=== PATIENT | female | born 1970 ===

== ENCOUNTER 2018-09-07 10:04 | Inpatient (IN) | payer OTHER ==
[2018-09-07 10:14] VITALS: BMI 40.7
--- NOTE | 2018-09-07 10:28 | ED PDOC ---
Arrival/HPI - General Chief Complaint: GI Problem Time Seen by Provider: 09/07/18 10:19 Historian: Patient - History of Present Illness Narrative History of Present Illness (Text): 09/07/18 10:23 48 year old female, pmh including GERD/uterine fibroid, nkda, complaining of epigastric pain/nausea/vomiting x 3 days with cough. Pt. stated that she has been having epigastric pain with coughing, progressed to nausea/vomiting, no ch est pain or shortness of breath, admits fatigue, no night sweat, no dizziness, no palpitation, no numbness or tingling, no other medical or psychological complaints. Past Medical History - Provider Review Nursing Documentation Reviewed: Yes - Infectious Disease Hx of Infectious Diseases: None - Reproductive Currently : No - Psychiatric Hx Substance Use: No - Anesthesia Hx Anesthesia: No Family/Social History - Physician Review Nursing Documentation Reviewed: Yes Family/Social History: Unknown Family HX Smoking Status: Never Smoked Hx Alcohol Use: No Hx Substance Use: No Allergies/Home Meds Allergies/Adverse Reactions: Allergies No Known Allergies Allergy (Verified 09/07/18 10:14) Review of Systems - Review of Systems Constitutional: Fatigue. absent: Fevers Eyes: absent: Vision Changes ENT: absent: Hearing Changes Respiratory: Cough. absent: SOB, Sputum, Wheezing Cardiovascular: absent: Chest Pain Gastrointestinal: Abdominal Pain, Nausea, Vomiting. absent: Constipation, Diarrhea Musculoskeletal: absent: Arthralgias, Back Pain, Myalgias Skin: absent: Rash, Pruritis, Skin Lesions, Ulcer Neurological: absent: Headache Psychiatric: absent: Anxiety, Depression, Suicidal Ideation Physical Exam Vital Signs Reviewed: Yes Vital Signs Temp Pulse Resp BP Pulse Ox 09/07/18 10:05 98.2 F 97 H 18 149/90 100 Temperature: Afebrile Blood Pressure: Normal Pulse: Regular Respiratory Rate: Normal Appearance: Positive for: Well-Appearing, Non-Toxic Pain Distress: None Mental Status: Positive for: Alert and Oriented X 3 - Systems Exam Head: Present: Atraumatic, Normocephalic Pupils: Present: PERRL Extroacular Muscles: Present: EOMI Conjunctiva: Present: Normal Ears: Present: NORMAL TM, Normal Canal. No: Erythema Mouth: Present: Moist Mucous Membranes Pharnyx: No: ERYTHEMA, EXUDATE, TONSILS ENLARGED Nose (External): Present: Atraumatic. No: Abrasion, Contusion, Laceration Nose (Internal): Present: Normal Inspection, No Active Bleeding. No: Rhinorrhea, Septal Hematoma, Epistaxis Neck: Present: Normal Range of Motion, Trachea Midline. No: Meningeal Signs, MIDLINE TENDERNESS, Paraspinal Tenderness, Lymphadenopathy Respiratory/Chest: Present: Clear to Auscultation, Good Air Exchange. No: Respiratory Distress, Accessory Muscle Use, Wheezes, Decreased Breath Sounds, Rales, Retracting, Rhonchi, Tachypneic, Tender to Palpation Cardiovascular: Present: Regular Rate and Rhythm, Normal S1, S2. No: Murmurs Abdomen: Present: Tenderness (epgiastric, negative carmona signs). No: Distention, Peritoneal Signs, Rebound, Guarding Rectal: Present: Hemorrhoids (external), Normal Rectal Tone, Other (female green chain offbearer: RAIL SETTERERNST Dimas. ). No: Occult Blood, Rectal Tenderness, Gross Blood, Melena, Fissures, Nodule/Mass/Lesions Back: Present: Normal Inspection. No: CVA Tenderness, Midline Tenderness, P araspinal Tenderness Upper Extremity: Present: Normal Inspection. No: Cyanosis, Edema Lower Extremity: Present: Normal Inspection. No: Edema Neurological: Present: GCS=15, CN II-XII Intact, Speech Normal, Motor Func Grossly Intact, Gait Normal, Memory Normal Skin: Present: Warm, Dry, Normal Color. No: Rashes Psychiatric: Present: Alert, Oriented x 3, Normal Insight, Normal Concentration Medical Decision Making ED Course and Treatment: 09/07/18 10:32 -labs -chest/abd xray -IVF/pepcid/reglan -Observe and reassess 09/07/18 12:45 -Urine hcg negative -Chest xray ER wet read: no active disease -Abdominal xray ER wet read: no obstruction and no free air. -Labs show no acute findings except hgb 6.1 with MCV 55.1 (no comparison, likely iron deficiency anemia, on her period now), iron/tibc/transferrin ordered -Mg within normal limit -Lipase is negative -Urinalysis show +UTI, IV rocephin -Guaiac is positive with brown stool color, IV protonix and 1 units of PRBC ordered -Pt. feels well at this time with pepcid relief her discomfort. -Pt. will need admission for blood transfusion and GI consult. 09/07/18 13:00 -I spoke to the hospitalist, Dr. Knight, discussed about the labs/radiology results, agreed on the admission. - RAD Interpretation Radiology Orders: -Chest xray Date of service: 09/07/2018 HISTORY: Cough COMPARISON: No prior TECHNIQUE: Chest PA and lateral FINDINGS: LUNGS: No active pulmonary disease. PLEURA: No significant pleural effusion identified. No pneumothorax apparent. CARDIOVASCULAR: No aortic atherosclerotic calcification present. Normal cardiac size. No pulmonary vascular congestion. OSSEOUS STRUCTURES: No significant abnormalities. VISUALIZED UPPER ABDOMEN: Normal. OTHER FINDINGS: None. IMPRESSION: No active disease. --------- -Abdominal xray Date of service: 09/07/2018 HISTORY: vomiting COMPARISON: None available. FINDINGS: BOWEL: Normal. No obstruction. No free air. Metallic clips are present in the right right parasagittal mid to lower abdomen; clinical correlation with surgical history. BONES: Minor multilevel degenerative spondylosis of the lower thoracic and lumbar spine. OTHER FINDINGS: None. IMPRESSION: No evidence of acute mechanical bowel obstruction.. No gross free intraperitoneal air Psychological Stress Evaluator: Radiologist - PA / MANAGER RADIATION / Resident Statement /DO has reviewed & agrees with the documentation as recorded. Disposition/Present on Arrival - Present on Arrival Any Indicators Present on Arrival: No History of DVT/PE: No History of Uncontrolled Diabetes: No Urinary Catheter: No History of Decub. Ulcer: No History Surgical Site Infection Following: None - Disposition Have Diagnosis and Disposition been Completed?: Yes Diagnosis: Anemia, UTI (urinary tract infection), GI bleed Disposition: HOSPITALIZED Disposition Time: 13:02 Patient Plan: Admission, Observation, Telemetry Patient Problems: Current Active Problems Problem Status Onset Anemia Acute GI bleed Acute UTI (urinary tract infection) Acute Condition: GUARDED
[2018-09-07] MEDS ORDERED: Sodium Chloride 0.9% 1,000 ML IV STA (10:29)
[2018-09-07 11:22] LABS: BASO # 0.02 K/mm3 (0.0-2.0); BASO % 0.3 % (0.0-3.0); EOS # 0.1 (0.0-0.7); EOS % 1.2 % (1.5-5.0); LYMPH # 1.5 (1.2-3.4); LYMPH % 20.9 % (22.0-35.0); MEAN CELL VOLUME 55.1 fl (80.0-105.0); MEAN CORPUSCULAR HEMOGLOBIN 15.1 pg (25.0-35.0); MEAN CORPUSCULAR HGB CONC 27.4 g/dl (31.0-37.0); MEAN PLATELET VOLUME 8.8 fl (7.0-11.0); MONO # 0.4 (0.1-0.6); MONO % 5.5 % (1.0-6.0); RBC 4.05 10^6/uL (3.5-6.1); RED CELL DISTRIBUTION WIDTH 19.4 % (11.5-14.5); WHITE BLOOD COUNT 6.9 10^3/uL (4.5-11.0)
[2018-09-07 11:23] LABS: URINE BILIRUBIN NEGATIVE (NEGATIVE); URINE BLOOD LARGE (NEGATIVE); URINE GLUCOSE (UA) NEGATIVE (NEGATIVE); URINE LEUKOCYTE ESTERASE TRACE Leu/uL (NEGATIVE); URINE PROTEIN TRACE mg/dL (<30 mg/dL); URINE UROBILINOGEN 0.2 E.U./dL (<1 E.U./dL)
[2018-09-07 11:29] LABS: URINE APPEARANCE SLIGHT-CLOUDY (CLEAR); URINE COLOR YELLOW (YELLOW)
[2018-09-07 11:35] LABS: HEMOGLOBIN 6.1 g/dL (12.0-16.0)
[2018-09-07 11:39] LABS: URINE BACTERIA MANY /hpf; URINE RBC TNTC /hpf (0-2)
[2018-09-07 11:40] LABS: TROPONIN I < 0.01 ng/mL
[2018-09-07 11:43] LABS: ALB/GLOB RATIO 1.3 (1.1-1.8); ALBUMIN 4.3 g/dL (3.0-4.8); ALT/SGPT 24 U/L (7-56); AST/SGOT 27 U/L (14-36); BLOOD UREA NITROGEN 10 mg/dL (7-21); GFR NON-AFRICAN AMERICAN > 60; LIPASE 98 U/L (23-300)
[2018-09-07] MEDS ORDERED: cefTRIAXone 1 gm 1 GM/100 ML BAG IVPB STA (12:15)
--- NOTE | 2018-09-07 12:59 | RAD ---
Date of service: 09/07/2018 HISTORY: Cough COMPARISON: No prior TECHNIQUE: Chest PA and lateral FINDINGS: LUNGS: No active pulmonary disease. PLEURA: No significant pleural effusion identified. No pneumothorax apparent. CARDIOVASCULAR: No aortic atherosclerotic calcification present. Normal cardiac size. No pulmonary vascular congestion. OSSEOUS STRUCTURES: No significant abnormalities. VISUALIZED UPPER ABDOMEN: Normal. OTHER FINDINGS: None. IMPRESSION: No active disease.
--- NOTE | 2018-09-07 13:41 | RAD ---
Date of service: 09/07/2018 HISTORY: vomiting COMPARISON: None available. FINDINGS: BOWEL: Normal. No obstruction. No free air. Metallic clips are present in the right right parasagittal mid to lower abdomen; clinical correlation with surgical history. BONES: Minor multilevel degenerative spondylosis of the lower thoracic and lumbar spine. OTHER FINDINGS: None. IMPRESSION: No evidence of acute mechanical bowel obstruction.. No gross free intraperitoneal air
[2018-09-07 13:58] LABS: IRON < 10 ug/dL (45-180)
[2018-09-07 14:18] LABS: TOTAL IRON BINDING CAPACITY 440 ug/dL (265-497)
--- NOTE | 2018-09-07 15:01 | CP.PCM.HP ---
<Tyler Braswell - Last Filed: 09/07/18 16:32> History of Present Illness - History of Present Illness History of Present Illness: Tyler Braswell PGY1, History and Physical for Dr Sherley Knight Pt is a 48yo female with a PMH of GERD and uterine fibroids who presents to the ED complaining of nausea and non bloody/ non bilious vomiting since this morning. Pt states she ate some [place] food yesterday and she feels it made her sick. She denies any sick contacts. Pt has not been able to eat anything today because of her nausea and vomiting. She states she has vomited over 10 times. Pt denies diarrhea, or seeing blood in the stool. Pt denies fever. Pt states she is currently on her menstrual cycle. Pt states she has very painful, cycles and she bleeds excessively for 5 days. She sometimes has to use 10 pad/tampons per day. Pt states she has been feeling fatigue for months. Pt has a history of uterine fibroids. A 12 point ROS was obtained and PMH: GERD, uterine fibroids PSH: appendectomy FH: mother alive 70, no health problems, Father 47, alcoholism SH: Tobacco quit 20 years ago, 1ppd for 7 years. Alcohol quit 20 years ago. Denies drugs. Lives in [place]. Home Meds: denies Allergies: denies PMD: denies Present on Admission - Present on Admission Any Indicators Present on Admission: No Past Patient History - Infectious Disease Hx of Infectious Diseases: None - Past Social History Smoking Status: Never Smoked - PSYCHIATRIC Hx Substance Use: No - ANESTHESIA Hx Anesthesia: No Meds Allergies/Adverse Reactions: Allergies Allergy/AdvReac Type Severity Reaction Status Date / Time No Known Allergies Allergy Verified 09/07/18 20:49 Physical Exam - Constitutional Appears: No Acute Distress - Head Exam Head Exam: ATRAUMATIC, NORMOCEPHALIC - Eye Exam Eye Exam: EOMI Additional comments: pale conjunctiva - ENT Exam ENT Exam: Mucous Membranes Moist - Neck Exam Neck exam: Positive for: Full Rom - Respiratory Exam Respiratory Exam: Clear to Auscultation Bilateral, NORMAL BREATHING PATTERN. absent: Accessory Muscle Use, Respiratory Distress - Cardiovascular Exam Cardiovascular Exam: RRR, +S1, +S2. absent: Diastolic murmur, Systolic Murmur - GI/Abdominal Exam GI & Abdominal Exam: Normal Bowel Sounds, Soft, Tenderness - Rectal Exam Additional comments: per ER, FOBT POSITIVE - Extremities Exam Extremities exam: Positive for: full ROM, normal inspection. Negative for: calf tenderness, pedal edema, pedal pulses present - Neurological Exam Neurological exam: Alert, Oriented x3 - Psychiatric Exam Psychiatric exam: Normal Affect, Normal Mood - Skin Skin Exam: Dry, Normal Color, Warm Results - Vital Signs Recent Vital Signs: Last Vital Signs Temp 98.2 F 09/07/18 10:05 Pulse 97 H 09/07/18 10:05 Resp 18 09/07/18 10:05 BP 149/90 09/07/18 10:05 Pulse Ox 100 09/07/18 10:05 - Labs Result Diagrams: 09/07/18 11:05 09/07/18 11:05 Labs: Laboratory Results - last 24 hr 09/07/18 09/07/18 09/07/18 10:45 11:05 11:05 WBC 6.9 RBC 4.05 Hgb 6.1 L* Hct 22.3 L MCV 55.1 L MCH 15.1 L MCHC 27.4 L RDW 19.4 H Plt Count 501 H MPV 8.8 Neut % (Auto) 72.1 H Lymph % (Auto) 20.9 L Beckham % (Auto) 5.5 Eos % (Auto) 1.2 L Baso % (Auto) 0.3 Lymph # (Auto) 1.5 Beckham # (Auto) 0.4 Eos # (Auto) 0.1 Baso # (Auto) 0.02 Absolute Neuts (auto) 5.01 Sodium 140 Potassium 4.2 Chloride 106 Carbon Dioxide 26 Anion Gap 13 BUN 10 Creatinine 0.6 L Est GFR ( Amer) > 60 Est GFR (Non-Af Amer) > 60 Random Glucose 103 Calcium 9.0 Magnesium 2.2 Iron TIBC % Saturation Total Bilirubin 0.3 AST 27 ALT 24 Alkaline Phosphatase 109 Troponin I < 0.01 Total Protein 7.7 Albumin 4.3 Globulin 3.3 Albumin/Globulin Ratio 1.3 Lipase 98 Urine Color Yellow Urine Appearance Slight-cloudy Urine pH 6.0 Ur Specific Lutz 1.025 Urine Protein Trace H Urine Glucose (UA) Negative Urine Ketones Negative Urine Blood Large H Urine Nitrate Negative Urine Bilirubin Negative Urine Urobilinogen 0.2 Ur Leukocyte Esterase Trace H Urine RBC Tntc H Urine WBC 5 - 10 H Ur Epithelial Cells 4 - 5 Urine Bacteria Many Urine Other Fiber Blood Type Blood Type Confirm Antibody Screen Crossmatch BBK History Checked 09/07/18 09/07/18 09/07/18 11:30 13:17 14:08 WBC RBC Hgb Hct MCV MCH MCHC RDW Plt Count MPV Neut % (Auto) Lymph % (Auto) Beckham % (Auto) Eos % (Auto) Baso % (Auto) Lymph # (Auto) Beckham # (Auto) Eos # (Auto) Baso # (Auto) Absolute Neuts (auto) Sodium Potassium Chloride Carbon Dioxide Anion Gap BUN Creatinine Est GFR ( Amer) Est GFR (Non-Af Amer) Random Glucose Calcium Magnesium Iron < 10 L TIBC 440 % Saturation Total Bilirubin AST ALT Alkaline Phosphatase Troponin I Total Protein Albumin Globulin Albumin/Globulin Ratio Lipase Urine Color Urine Appearance Urine pH Ur Specific Lutz Urine Protein Urine Glucose (UA) Urine Ketones Urine Blood Urine Nitrate Urine Bilirubin Urine Urobilinogen Ur Leukocyte Esterase Urine RBC Urine WBC Ur Epithelial Cells Urine Bacteria Urine Other Blood Type B POSITIVE Blood Type Confirm B POSITIVE Antibody Screen Negative Crossmatch See Detail BBK History Checked No verified bt Assessment & Plan - Assessment and Plan (Free Text) Assessment: Pt is a 48yo female with a PMH of GERD and uterine fibroids who presents to the ED complaining of nausea and non bloody/ non bilious vomiting since this morning. Pt states she ate some [place] food yesterday and she feels it made her sick. Pt was found to have a Hgn of 6.1, likely from her uterine fibroids. Plan: Intractable Nausea and Vomiting - Viral Gastroenteritis - history of GERD - NS100, for 24 hours - Protonix - GI consulted Symptomatic Hypochromic Microcytic Anemia - FOBT POSITIVE - history of uterine fibroids - monitor CBC - type and screen, transfuse 1 unit - peripheral smear shows hypochromic microcytic anemia - electrophoresis - iron studies follow up Ppx, diet - CLD Pt seen, examined, assessment and plan discussed with Dr Sherley Braswell PGY1, Internal Medicine Resident - Date & Time Date: 09/07/18 Time: 15:05 <Sherley Knight R - Last Filed: 09/08/18 13:38> Results - Vital Signs Recent Vital Signs: Last Vital Signs Temp 98.6 F 09/08/18 13:20 Pulse 91 H 09/08/18 13:20 Resp 20 09/08/18 13:20 BP 135/76 09/08/18 13:20 Pulse Ox 100 09/08/18 05:57 - Labs Result Diagrams: 09/08/18 05:00 09/08/18 05:00 Labs: Laboratory Results - last 24 hr 09/07/18 09/07/18 09/07/18 11:05 11:30 13:17 WBC RBC Hgb Hct MCV MCH MCHC RDW Plt Count MPV Neut % (Auto) Lymph % (Auto) Beckham % (Auto) Eos % (Auto) Baso % (Auto) Lymph # (Auto) Beckham # (Auto) Eos # (Auto) Baso # (Auto) Absolute Neuts (auto) Hemoglobinopathy Red Blood Count 3.96 Hemoglobinopathy Hct 20.9 L Hemoglobinopathy Hgb 6.1 L Hemoglobinopathy MCV 52.8 L Hemoglobinopathy MCH 15.5 L Hemoglobinopathy RDW 20.9 H Sodium Potassium Chloride Carbon Dioxide Anion Gap BUN Creatinine Est GFR ( Amer) Est GFR (Non-Af Amer) Random Glucose Calcium Iron < 10 L TIBC 440 % Saturation Transferrin Total Bilirubin AST ALT Alkaline Phosphatase Total Protein Albumin Globulin Albumin/Globulin Ratio Blood Type B POSITIVE Blood Type Confirm Antibody Screen Negative Crossmatch See Detail BBK History Checked No verified bt 09/07/18 09/07/18 09/08/18 14:08 14:30 05:00 WBC 6.7 RBC 4.26 Hgb 6.9 L* Hct 24.6 L MCV 57.7 L MCH 16.2 L MCHC 28.0 L RDW 22.5 H Plt Count 483 H MPV 9.4 Neut % (Auto) 58.5 Lymph % (Auto) 31.7 Beckham % (Auto) 8.5 H Eos % (Auto) 1.2 L Baso % (Auto) 0.1 Lymph # (Auto) 2.1 Beckham # (Auto) 0.6 Eos # (Auto) 0.1 Baso # (Auto) 0.01 Absolute Neuts (auto) 3.92 Hemoglobinopathy Red Blood Count Hemoglobinopathy Hct Hemoglobinopathy Hgb Hemoglobinopathy MCV Hemoglobinopathy MCH Hemoglobinopathy RDW Sodium Potassium Chloride Carbon Dioxide Anion Gap BUN Creatinine Est GFR ( Amer) Est GFR (Non-Af Amer) Random Glucose Calcium Iron TIBC % Saturation Transferrin 339.29 Total Bilirubin AST ALT Alkaline Phosphatase Total Protein Albumin Globulin Albumin/Globulin Ratio Blood Type Blood Type Confirm B POSITIVE Antibody Screen Crossmatch BBK History Checked 09/08/18 05:00 WBC RBC Hgb Hct MCV MCH MCHC RDW Plt Count MPV Neut % (Auto) Lymph % (Auto) Beckham % (Auto) Eos % (Auto) Baso % (Auto) Lymph # (Auto) Beckham # (Auto) Eos # (Auto) Baso # (Auto) Absolute Neuts (auto) Hemoglobinopathy Red Blood Count Hemoglobinopathy Hct Hemoglobinopathy Hgb Hemoglobinopathy MCV Hemoglobinopathy MCH Hemoglobinopathy RDW Sodium 139 Potassium 4.0 Chloride 111 H Carbon Dioxide 23 Anion Gap 9 L BUN 8 Creatinine 0.6 L Est GFR ( Amer) > 60 Est GFR (Non-Af Amer) > 60 Random Glucose 95 Calcium 8.5 Iron TIBC % Saturation Transferrin Total Bilirubin 0.4 AST 33 ALT 17 Alkaline Phosphatase 98 Total Protein 7.0 Albumin 3.9 Globulin 3.1 Albumin/Globulin Ratio 1.3 Blood Type Blood Type Confirm Antibody Screen Crossmatch BBK History Checked Attending/Attestation - Attestation I have personally seen and examined this patient.: Yes I have fully participated in the care of the patient.: Yes I have reviewed all pertinent clinical information: Yes Notes (Text): Patient seen and examined by me with resident at 1:15PM on 09/07/18 in the emergency room. Case including HPI, physical exam, and assessment and plan discussed with resident. Agree with above with following additions/corrections. CC: Nausea, vomiting, and Abdominal Pain. Patient is a 48-year-old female past medical history significant for acid reflux, urine fibroids, and iron deficient anemia that presented to the emergency room with nausea, vomiting, and abdominal pain. Patient states that she had Nigerian food around 10 PM last night. She states that she was only one in her household that this fluid. She woke up this morning feeling nauseous. She states she had multiple episodes of nonbilious, nonbloody vomiting. She states it looked like "phlegm." She states she was also having some abdominal pain in the middle of the abdomen. No associated diarrhea. Patient has not noticed any blood in her stool. Patient states that she has had increased fatigue. She s tates that she was supposed to take iron at home however she has not been taking it as it did not make her feel well. She denies any fevers or chills. Abdominal pain resolved. No headaches or dizziness. No lightheadedness. No chest pain or shortness of breath. No dysuria or burning with urination. No neck pain or back pain. Patient states that she is on her menstrual period. She states that she tejada s heavy menses. Patient states that she was supposed follow-up for fibroids however, she did not do so. 12 point review of systems reviewed by me. Please see above HPI. All other systems negative. Medications at home: Reviewed in patient denies taking any Allergies: NKDA Physical exam: General: Awake and alert lying in bed in no acute distress HEENT: Normocephalic, atraumatic. Extraocular muscles intact, pupils equal and reactive, no scleral icterus. Oropharynx is pink and moist. No pharyngeal e rythema or exudate apreciated. Neck is supple. Hearing grossly intact. Ears and nose externally unremarkable. Cardiovascular: Regular rhythm. Normal S1 and S2. No murmurs, rubs, or gallops appreciated Pulmonary: Normal respiratory effort. No rhonchi, rales, or wheezing appreciated. Gastrointestinal: Soft, nondistended. Nontender. Positive bowel sounds all 4 quadrants. No guarding. Musculoskeletal: Moves all extremities. No calf tenderness. No edema. Central nervous system: AAOx3, CN 2-12 grossly intact. 5/5 muscle strength all extremities. Dermatologic: Skin warm and dry. Assessment and plan: Patient is a 48-year-old female past medical history significant for acid reflux, urine fibroids, and iron deficient anemia that presented to the emergency room with nausea, vomiting, and abdominal pain. 1. Nausea, vomiting, no abdominal pain. Improved. Likely secondary to viral gastroenteritis. Continue IV fluids. We'll place on clear liquids for now. Zofran as needed. Abdominal x-ray per radiologist showed no evidence of acute mechanical bowel obstruction, no gross free intraperitoneal air. 2. Severe anemia. Stool for occult blood positive. Patient also with history of heavy menses and uterine fibroids. GI consulted, follow-up recommendations. Patient advised that she will need follow-up with her mechanical developer prover as an outpatient. Transfuse packed red blood cells. Monitor CBC and transfuse as needed. Follow-up iron studies. Placed on IV Protonix. 3. Obesity. Diet and exercise discussed with patient. 4. GI/DVT prophylaxis. Protonix/scds 5. Patient is a full code. Case was discussed in detail with the patient regarding current diagnosis and treatment plan. All questions answered.
[2018-09-07] MEDS: Sodium Chloride 0.9% 1,000 ML IV SCH (15:32)
[2018-09-07] MEDS ORDERED: Pneumococcal 23-Valent Vaccine IM ONE (22:50)
[2018-09-07] MEDS ORDERED: Influenza Vaccine 60 mcg/0.5 mL SYR (4YR UP) IM ONE (22:50)
[2018-09-08 06:11] LABS: MCH 15.5 pg (27.0-33.0); MCV 52.8 fL (80.0-100.0)
[2018-09-08 07:09] LABS: BASO # 0.01 K/mm3 (0.0-2.0); BASO % 0.1 % (0.0-3.0); EOS # 0.1 (0.0-0.7); EOS % 1.2 % (1.5-5.0); LYMPH # 2.1 (1.2-3.4); LYMPH % 31.7 % (22.0-35.0); MEAN CELL VOLUME 57.7 fl (80.0-105.0); MEAN CORPUSCULAR HEMOGLOBIN 16.2 pg (25.0-35.0); MEAN PLATELET VOLUME 9.4 fl (7.0-11.0); MONO # 0.6 (0.1-0.6); MONO % 8.5 % (1.0-6.0); RBC 4.26 10^6/uL (3.5-6.1); RED CELL DISTRIBUTION WIDTH 22.5 % (11.5-14.5); WHITE BLOOD COUNT 6.7 10^3/uL (4.5-11.0)
[2018-09-08 07:45] LABS: HEMOGLOBIN 6.9 g/dL (12.0-16.0)
[2018-09-08 07:49] LABS: ALB/GLOB RATIO 1.3 (1.1-1.8); ALBUMIN 3.9 g/dL (3.0-4.8); ALT/SGPT 17 U/L (7-56); AST/SGOT 33 U/L (14-36); BLOOD UREA NITROGEN 8 mg/dL (7-21); CALCIUM 8.5 mg/dL (8.4-10.5); GFR NON-AFRICAN AMERICAN > 60
[2018-09-08] MEDS: Sodium Chloride 0.9% 1,000 ML IV SCH ×2 (10:01→10:07)
--- NOTE | 2018-09-08 11:14 | CARD ---
APPROVED REPORT Date of service: 09/07/2018 EKG Measurement Heart [id number] <Conclusion> Normal sinus rhythm Normal ECG
--- NOTE | 2018-09-08 11:42 | CP.PCM.PN ---
<Tyler Braswell - Last Filed: 09/08/18 11:53> Subjective - Date & Time of Evaluation Date of Evaluation: 09/08/18 Time of Evaluation: 06:00 - Subjective Subjective: Pt seen and examined this morning at bedside. Pt denies chest pain, SOB, or dizziness. Per nursing, pt transfused 1 unit pRBC, no adverse reactions or side effects noted. Objective - Vital Signs/Intake and Output Vital Signs (last 24 hours): Temp Pulse Resp BP Pulse Ox 98.1 F 64 18 133/77 100 09/08/18 05:57 09/08/18 05:57 09/08/18 05:57 09/08/18 05:57 09/08/18 05:57 Intake and Output: 09/08/18 09/08/18 06:59 18:59 Intake Total 1040 Balance 1040 - Medications Medications: Current Medications Sodium Chloride (Sodium Chloride 0.9%) 1,000 mls @ 100 mls/hr IV .Q10H CALEB Stop: 09/08/18 14:45 Last Admin: 09/08/18 10:07 Dose: 100 mls/hr Pantoprazole Sodium (Protonix Inj) 40 mg IVP Q12 CALEB Last Admin: 09/08/18 10:00 Dose: 40 mg - Labs Labs: 09/08/18 05:00 09/08/18 05:00 - Constitutional Appears: No Acute Distress - Head Exam Head Exam: ATRAUMATIC, NORMOCEPHALIC - Eye Exam Eye Exam: EOMI - ENT Exam ENT Exam: Mucous Membranes Moist - Neck Exam Neck Exam: Full ROM - Respiratory Exam Respiratory Exam: NORMAL BREATHING PATTERN. absent: Accessory Muscle Use, Clear to Ausculation Bilateral, Respiratory Distress - Cardiovascular Exam Cardiovascular Exam: +S1, +S2. absent: Diastolic murmur, Murmur - GI/Abdominal Exam GI & Abdominal Exam: Soft, Normal Bowel Sounds. absent: Tenderness - Extremities Exam Extremities Exam: Full ROM. absent: Calf Tenderness, Pedal Edema, Tenderness - Neurological Exam Neurological Exam: Alert, Awake, Oriented x3 - Psychiatric Exam Psychiatric exam: Normal Affect, Normal Mood - Skin Skin Exam: Dry, Intact, Warm Assessment and Plan - Assessment and Plan (Free Text) Assessment: Pt is a 48yo female with a PMH of GERD and uterine fibroids who presents to the ED complaining of nausea and non bloody/ non bilious vomiting since this morning. Pt states she ate some Latvian food yesterday and she feels it made her sick. Pt was found to have a Hgb of 6.1, likely from her uterine fibroids. Plan: Intractable Nausea and Vomiting - Likely Viral Gastroenteritis, history of GERD - Protonix - GI consulted Symptomatic Hypochromic Microcytic Anemia - FOBT POSITIVE - history of uterine fibroids - Hgb 6.9 after being transfused 1 unit - type and screen, transfused 1 unit 09/07/18 - transfuse 2 units 09/08/18 - peripheral smear shows hypochromic microcytic anemia - electrophoresis follow up - iron studies: iron <10, TIBC 440, unable to calculate %sat, Transferrin 339 Ppx, diet - CLD - SCD Pt seen, examined, assessment and plan discussed with Dr Sherley Braswell PGY1, Internal Medicine Resident <Sherley Knight R - Last Filed: 09/09/18 16:41> Objective - Vital Signs/Intake and Output Vital Signs (last 24 hours): Temp Pulse Resp BP Pulse Ox 98.5 F 105 H 20 170/89 H 99 09/09/18 15:25 09/09/18 15:25 09/09/18 15:25 09/09/18 15:25 09/09/18 15:25 Intake and Output: 09/09/18 09/09/18 06:59 18:59 Intake Total 2385 Balance 2385 - Medications Medications: Current Medications Pantoprazole Sodium (Protonix Inj) 40 mg IVP DAILY CALEB Last Admin: 09/09/18 09:29 Dose: 40 mg - Labs Labs: 09/09/18 07:10 09/09/18 07:10 PT 13.5 SECONDS (9.4-12.5) H 09/09/18 11:20 INR 1.19 09/09/18 11:20 Attending/Attestation - Attestation I have personally seen and examined this patient.: Yes I have fully participated in the care of the patient.: Yes I have reviewed all pertinent clinical information, including history, physical exam and plan: Yes Notes (Text): Patient seen and examined by me with resident at 9:20AM on 09/08/18. Case including HPI, physical exam, and assessment and plan discussed with resident. Agree with above with following additions/corrections. Patient is a 48-year-old female past medical history significant for acid reflux, urine fibroids, and iron deficient anemia that presented to the emergency room with nausea, vomiting, and abdominal pain. Patient states she is feeling better. Nausea and vomiting resolved. Abdominal pain resolved. Patient is tolerating liquid diet. Still feels fatigued and has a little shortness of breath with exertion. No chest pain or palpitations. No fevers or chills. No headaches or dizziness. No dysuria. Physical exam: General: Awake and alert lying in bed in no acute distress HEENT: Normocephalic, atraumatic. Extraocular muscles intact, pupils equal and reactive, no scleral icterus. Oropharynx is pink and moist. No pharyngeal erythema or exudate appreciated. Neck is supple. Cardiovascular: Regular rhythm. Normal S1 and S2. No murmurs, rubs, or gallops appreciated Pulmonary: Normal respiratory effort. No rhonchi, rales, or wheezing appreciated. Gastrointestinal: Soft, nondistended. Nontender. Positive bowel sounds all 4 quadrants. No guarding. Musculoskeletal: Moves all extremities. No calf tenderness. No edema. Central nervous system: AAOx3, CN 2-12 grossly intact. Dermatologic: Skin warm and dry. Assessment and plan: Patient is a 48-year-old female past medical history significant for acid reflux, urine fibroids, and iron deficient anemia that p resented to the emergency room with nausea, vomiting, and abdominal pain. 1. Nausea, vomiting, no abdominal pain. Resolved. Likely secondary to viral gastroenteritis. Continue IV fluids. Tolerating liquid diet Zofran as needed. Abdominal x-ray per radiologist showed no evidence of acute mechanical bowel obstruction, no gross free intraperitoneal air. 2. Severe anemia. Stool for occult blood positive. S/P 1 unit PRBC. Patient to be transfused 2 more units PRBC. Will need iron infusions as iron <10. CT abd/pelvis shows large uterine fibroid. Patient also with history of heavy menses and uterine fibroids. GI consulted, follow-up recommendations. Patient advised that she will need follow-up with her meat team lead as an outpatient. 3. Obesity. Diet and exercise discussed with patient. 4. GI/DVT prophylaxis. Protonix/scds 5. Patient is a full code. Case was discussed in detail with the patient regarding current diagnosis and treatment plan. All questions answered.
--- NOTE | 2018-09-08 16:22 | CP.PCM.CON ---
<Branden Whalen - Last Filed: 09/08/18 16:54> History of Present Illness - History of Present Illness History of Present Illness: PGY 4 GI fellow consult note Patient is a 48-year-old female with a history of uterine fibroids (complicated by menorrhagia), GERD presenting with nausea, vomiting and lightheadedness. She reports multiple episodes of nonbloody nonbilious emesis yesterday. She states she recently ate [place]ugu food; however, does not attribute it to that because she eats at that location regularly. She denies any sick contacts, recent travel, antibiotic usedysphagia, melena, hematochezia, weight loss. She states bowel movements have been normal, described as brown or yellow soft formed brown movements. She states she had a upper endoscopy done several years ago at [place] with "only signs of reflux" and no prior colonoscopy. In the ED she was found to have a hemoglobin of 6.1 from unknown baseline, vitals stable. She was given 1 unit PRBC with improvement to 6.9 and improvement in her symptoms. Fecal occult blood test was checked and was positive. Therefore, GI was consulted for further evaluation. 12 point review of systems negative other than stated above Medical history: See above Surgical history: appendectomy Medications: No daily medications Family history: Denied any history of GI problems Social history: Quit tobacco 20 years ago after a 7 pack year, quit alcohol 20 years ago, denied illicits allergies: No known drug allergies Past Patient History - Infectious Disease Hx of Infectious Diseases: None - Past Social History Smoking Status: Former Smoker - CARDIAC Hx Cardiac Disorders: No - PULMONARY Hx Respiratory Disorders: Yes (USED TO SMOKE CIGARETTES PPD QUIT 20 YRS AGO) - NEUROLOGICAL Hx Neurological Disorder: No - HEENT Hx HEENT Problems: No - RENAL Hx Chronic Kidney Disease: No - ENDOCRINE/METABOLIC Hx Endocrine Disorders: No - HEMATOLOGICAL/ONCOLOGICAL Hx Blood Disorders: Yes Hx Anemia: Yes (IRON INFUSIONS,BLOOD TRANSFUSION 2-2-19) - INTEGUMENTARY Hx Dermatological Problems: No - MUSCULOSKELETAL/RHEUMATOLOGICAL Hx Musculoskeletal Disorders: No Hx Falls: No - GASTROINTESTINAL Hx Gastrointestinal Disorders: Yes (APPENDECTOMY,GI BLEED) Hx Gastroesophageal Reflux: Yes - GENITOURINARY/GYNECOLOGICAL Hx Genitourinary Disorders: Yes (FIBROIDS) Hx Urinary Tract Infection: Yes - PSYCHIATRIC Hx Psychophysiologic Disorder: No Hx Substance Use: No - SURGICAL HISTORY Hx Surgeries: Yes Hx Appendectomy: Yes - ANESTHESIA Hx Anesthesia: No Meds Allergies/Adverse Reactions: Allergies Allergy/AdvReac Type Severity Reaction Status Date / Time No Known Allergies Allergy Verified 09/07/18 20:49 - Medications Medications: Current Medications Pantoprazole Sodium (Protonix Inj) 40 mg IVP Q12 CALEB Last Admin: 09/08/18 10:00 Dose: 40 mg Physical Exam - Constitutional Appears: Well, No Acute Distress - Head Exam Head Exam: ATRAUMATIC, NORMAL INSPECTION - Eye Exam Eye Exam: EOMI. absent: Scleral icterus - ENT Exam ENT Exam: Mucous Membranes Moist. absent: Mucous Membranes Dry - Respiratory Exam Respiratory Exam: Clear to Auscultation Bilateral, NORMAL BREATHING PATTERN. absent: Accessory Muscle Use - Cardiovascular Exam Cardiovascular Exam: REGULAR RHYTHM, RRR - GI/Abdominal Exam GI & Abdominal Exam: Normal Bowel Sounds, Rigid, Soft. absent: Bruit, Diminished Bowel Sounds, Distended, Firm, Guarding, Hernia, Mass, Organomegaly, Pulsatile Mass, Rebound, Tenderness - Rectal Exam Rectal Exam: NORMAL INSPECTION Additional comments: scant amount of light brown/yellow stool on ANNA, no obvious palpable masses - Extremities Exam Extremities exam: Positive for: normal inspection. Negative for: pedal edema - Neurological Exam Neurological exam: Alert, CN II-XII Intact - Psychiatric Exam Psychiatric exam: Normal Affect, Normal Mood - Skin Skin Exam: Dry, Warm Results - Vital Signs Recent Vital Signs: Last Vital Signs Temp 98 F 09/08/18 14:05 Pulse 91 H 09/08/18 14:05 Resp 20 09/08/18 14:05 BP 116/60 09/08/18 14:05 Pulse Ox 100 09/08/18 05:57 - Labs Result Diagrams: 09/08/18 05:00 09/08/18 05:00 Labs: Laboratory Results - last 24 hr 09/07/18 09/07/18 09/07/18 11:05 13:17 14:30 WBC RBC Hgb Hct MCV MCH MCHC RDW Plt Count MPV Neut % (Auto) Lymph % (Auto) Haskell % (Auto) Eos % (Auto) Baso % (Auto) Lymph # (Auto) Haskell # (Auto) Eos # (Auto) Baso # (Auto) Absolute Neuts (auto) Hemoglobinopathy Red Blood Count 3.96 Hemoglobinopathy Hct 20.9 L Hemoglobinopathy Hgb 6.1 L Hemoglobinopathy MCV 52.8 L Hemoglobinopathy MCH 15.5 L Hemoglobinopathy RDW 20.9 H Sodium Potassium Chloride Carbon Dioxide Anion Gap BUN Creatinine Est GFR ( Amer) Est GFR (Non-Af Amer) Random Glucose Calcium Transferrin 339.29 Total Bilirubin AST ALT Alkaline Phosphatase Total Protein Albumin Globulin Albumin/Globulin Ratio Blood Type B POSITIVE Antibody Screen Negative Crossmatch See Detail BBK History Checked No verified bt 09/08/18 09/08/18 05:00 05:00 WBC 6.7 RBC 4.26 Hgb 6.9 L* Hct 24.6 L MCV 57.7 L MCH 16.2 L MCHC 28.0 L RDW 22.5 H Plt Count 483 H MPV 9.4 Neut % (Auto) 58.5 Lymph % (Auto) 31.7 Haskell % (Auto) 8.5 H Eos % (Auto) 1.2 L Baso % (Auto) 0.1 Lymph # (Auto) 2.1 Haskell # (Auto) 0.6 Eos # (Auto) 0.1 Baso # (Auto) 0.01 Absolute Neuts (auto) 3.92 Hemoglobinopathy Red Blood Count Hemoglobinopathy Hct Hemoglobinopathy Hgb Hemoglobinopathy MCV Hemoglobinopathy MCH Hemoglobinopathy RDW Sodium 139 Potassium 4.0 Chloride 111 H Carbon Dioxide 23 Anion Gap 9 L BUN 8 Creatinine 0.6 L Est GFR ( Amer) > 60 Est GFR (Non-Af Amer) > 60 Random Glucose 95 Calcium 8.5 Transferrin Total Bilirubin 0.4 AST 33 ALT 17 Alkaline Phosphatase 98 Total Protein 7.0 Albumin 3.9 Globulin 3.1 Albumin/Globulin Ratio 1.3 Blood Type Antibody Screen Crossmatch BBK History Checked Assessment & Plan - Assessment and Plan (Free Text) Assessment: 48-year-old female with a history of reflux, uterine fibroids complicated by menorrhagia presenting with nausea vomiting and lightheadedness. #Acute microcytic anemia: Hemoglobin 6.1 from unknown baseline. Hemoglobin 6.1 after 1 unit PRBC. Suspect related to known fibroids with menorrhagia. Hemoccult likely falsely positive. Rectal exam with light brown stool and patient has not noted any melena nor hematochezia. #thrombocytosis: Likely reactive due to above #GERD: No symptoms currently. Not on medication as outpatient #Endoscopy history: EGD "many years ago" at [place] with signs of reflux. No prior colonoscopy Plan: -CT of the abdomen and pelvis with PO and IV contrast Blood transfusions per primary Monitor response Advance diet as tolerated -No plans for endoscopic evaluation at this time patient seen and examined with Dr. Olson, please see attestation for further details/changes Portions of this note has been dictated but not necessarily proofread <Robyn Olson V - Last Filed: 09/08/18 23:31> Meds - Medications Medications: Current Medications Pantoprazole Sodium (Protonix Inj) 40 mg IVP DAILY CALEB Results - Vital Signs Recent Vital Signs: Last Vital Signs Temp 98 F 09/08/18 20:02 Pulse 79 09/08/18 20:02 Resp 20 09/08/18 20:02 BP 145/80 09/08/18 20:02 Pulse Ox 99 09/08/18 17:44 - Labs Result Diagrams: 09/08/18 05:00 09/08/18 05:00 Labs: Laboratory Results - last 24 hr 09/07/18 09/07/18 09/08/18 11:05 13:17 05:00 WBC 6.7 RBC 4.26 Hgb 6.9 L* Hct 24.6 L MCV 57.7 L MCH 16.2 L MCHC 28.0 L RDW 22.5 H Plt Count 483 H MPV 9.4 Neut % (Auto) 58.5 Lymph % (Auto) 31.7 Haskell % (Auto) 8.5 H Eos % (Auto) 1.2 L Baso % (Auto) 0.1 Lymph # (Auto) 2.1 Haskell # (Auto) 0.6 Eos # (Auto) 0.1 Baso # (Auto) 0.01 Absolute Neuts (auto) 3.92 Hemoglobinopathy Red Blood Count 3.96 Hemoglobinopathy Hct 20.9 L Hemoglobinopathy Hgb 6.1 L Hemoglobinopathy MCV 52.8 L Hemoglobinopathy MCH 15.5 L Hemoglobinopathy RDW 20.9 H Sodium Potassium Chloride Carbon Dioxide Anion Gap BUN Creatinine Est GFR ( Amer) Est GFR (Non-Af Amer) Random Glucose Calcium Total Bilirubin AST ALT Alkaline Phosphatase Total Protein Albumin Globulin Albumin/Globulin Ratio Urine HCG, Qual Blood Type B POSITIVE Antibody Screen Negative Crossmatch See Detail BBK History Checked No verified bt 09/08/18 09/08/18 05:00 17:23 WBC RBC Hgb Hct MCV MCH MCHC RDW Plt Count MPV Neut % (Auto) Lymph % (Auto) Haskell % (Auto) Eos % (Auto) Baso % (Auto) Lymph # (Auto) Haskell # (Auto) Eos # (Auto) Baso # (Auto) Absolute Neuts (auto) Hemoglobinopathy Red Blood Count Hemoglobinopathy Hct Hemoglobinopathy Hgb Hemoglobinopathy MCV Hemoglobinopathy MCH Hemoglobinopathy RDW Sodium 139 Potassium 4.0 Chloride 111 H Carbon Dioxide 23 Anion Gap 9 L BUN 8 Creatinine 0.6 L Est GFR ( Amer) > 60 Est GFR (Non-Af Amer) > 60 Random Glucose 95 Calcium 8.5 Total Bilirubin 0.4 AST 33 ALT 17 Alkaline Phosphatase 98 Total Protein 7.0 Albumin 3.9 Globulin 3.1 Albumin/Globulin Ratio 1.3 Urine HCG, Qual Negative Blood Type Antibody Screen Crossmatch BBK History Checked Attending/Attestation - Attestation I have personally seen and examined this patient.: Yes I have fully participated in the care of the patient.: Yes I have reviewed all pertinent clinical information: Yes Notes (Text): This is an addendum to GI consult report dictated by the GI Fellow. The patient was seen and examined earlier. Medical records, lab studies, imagings were reviewed. Last 24 hours events reviewed. Agreed with the above treatment plan as outlined in GI Fellow 's notes with the addition of the following Patient has history of menorrhagia Brown stool occult blood positive may be because of the present menorrhagia, false positive However we need to rule out any GI source of blood loss in this patient Follow-up CT Patient would need GEOPHYSICIST and also GI workup including EGD and colonoscopy Would need iron supplements long-term basis Check celiac disease profile iron studies Patient need to be followed up in clinic 09/08/18 23:28 09/08/18 23:30
[2018-09-08 20:03] VITALS: RESP 20
[2018-09-09] MEDS ORDERED: Barium Sulfate Susp 2.1% w/v, 2.0% w/w 450 mL Bottle PO ONE (00:09)
[2018-09-09 07:22] LABS: BASO # 0.02 K/mm3 (0.0-2.0); BASO % 0.2 % (0.0-3.0); EOS # 0.1 (0.0-0.7); EOS % 1.4 % (1.5-5.0); LYMPH # 2.6 (1.2-3.4); LYMPH % 29.4 % (22.0-35.0); MEAN CORPUSCULAR HEMOGLOBIN 18.9 pg (25.0-35.0); MEAN CORPUSCULAR HGB CONC 29.8 g/dl (31.0-37.0); MONO # 0.6 (0.1-0.6); MONO % 7.1 % (1.0-6.0); RBC 4.98 10^6/uL (3.5-6.1); RED CELL DISTRIBUTION WIDTH 28.5 % (11.5-14.5); WHITE BLOOD COUNT 8.9 10^3/uL (4.5-11.0)
[2018-09-09 07:37] LABS: HEMOGLOBIN 9.4 g/dL (12.0-16.0)
[2018-09-09 07:38] LABS: MEAN CELL VOLUME 63.3 fl (80.0-105.0)
[2018-09-09 08:05] LABS: ALB/GLOB RATIO 1.2 (1.1-1.8); ALBUMIN 4.2 g/dL (3.0-4.8); ALT/SGPT 12 U/L (7-56); AST/SGOT 33 U/L (14-36); BLOOD UREA NITROGEN 7 mg/dL (7-21); CALCIUM 9.1 mg/dL (8.4-10.5); GFR NON-AFRICAN AMERICAN > 60
--- NOTE | 2018-09-09 11:31 | CT ---
Date of service: 09/09/2018 PROCEDURE: CT Abdomen and Pelvis with contrast HISTORY: anemia, hemoccult positive, fibroids COMPARISON: None. TECHNIQUE: Contrast dose: Radiation dose: Total exam DLP = 827.29 mGy-cm. This CT exam was performed using one or more of the following dose reduction techniques: Automated exposure control, adjustment of the mA and/or kV according to patient size, and/or use of iterative reconstruction technique. FINDINGS: LOWER THORAX: Unremarkable. LIVER: Unremarkable. No gross lesion or ductal dilatation. GALLBLADDER AND BILE DUCTS: Unremarkable. PANCREAS: Unremarkable. No gross lesion or ductal dilatation. SPLEEN: Unremarkable. ADRENALS: Unremarkable. No mass. KIDNEYS AND URETERS: Unremarkable. No hydronephrosis. No solid mass. VASCULATURE: Unremarkable. No aortic aneurysm. No aortic atherosclerotic calcification or mural plaque present. BOWEL: Unremarkable. No obstruction. No gross mural thickening. APPENDIX: Normal appendix. PERITONEUM: Unremarkable. No free fluid. No free air. LYMPH NODES: Unremarkable. No enlarged lymph nodes. BLADDER: Unremarkable. REPRODUCTIVE: There is a large fibroid uterus measuring 15.3 x 12.8 x 13.8 cm in size. BONES: No acute fracture. OTHER FINDINGS: None. IMPRESSION: Large fibroid uterus. No acute intra-abdominal findings
[2018-09-09 11:49] LABS: INR 1.19; PROTHROMBIN TIME 13.5 SECONDS (9.4-12.5)
[2018-09-09] MEDS ORDERED: Sodium Chloride 0.9% 1,000 ML IV SCH (17:15)
[2018-09-09 17:32] VITALS: O2SAT 95
--- NOTE | 2018-09-09 18:20 | CP.PCM.PN ---
<FrenchTyler Keith - Last Filed: 09/09/18 18:31> Subjective - Date & Time of Evaluation Date of Evaluation: 09/09/18 Time of Evaluation: 07:00 - Subjective Subjective: Pt seen and examined at bedside this morning. Per nursing, complain of headache, given tylenol, pt was NPO for endo procedure. Objective - Vital Signs/Intake and Output Vital Signs (last 24 hours): Temp Pulse Resp BP Pulse Ox 98.5 F 70 20 117/60 95 09/09/18 17:30 09/09/18 17:30 09/09/18 17:30 09/09/18 17:30 09/09/18 17:30 Intake and Output: 09/09/18 09/09/18 06:59 18:59 Intake Total 2385 Balance 2385 - Medications Medications: Current Medications Sodium Chloride (Sodium Chloride 0.9%) 1,000 mls @ 100 mls/hr IV .Q10H CALEB Stop: 09/09/18 19:08 Pantoprazole Sodium (Protonix Inj) 40 mg IVP DAILY CALEB Last Admin: 09/09/18 09:29 Dose: 40 mg - Labs Labs: 09/09/18 07:10 09/09/18 07:10 PT 13.5 SECONDS (9.4-12.5) H 09/09/18 11:20 INR 1.19 09/09/18 11:20 - Constitutional Appears: No Acute Distress - Head Exam Head Exam: ATRAUMATIC, NORMOCEPHALIC - Eye Exam Eye Exam: EOMI - ENT Exam ENT Exam: Mucous Membranes Moist - Neck Exam Neck Exam: Full ROM - Respiratory Exam Respiratory Exam: Clear to Ausculation Bilateral, NORMAL BREATHING PATTERN. absent: Accessory Muscle Use, Respiratory Distress - Cardiovascular Exam Cardiovascular Exam: RRR, +S1, +S2. absent: Diastolic murmur, Murmur - GI/Abdominal Exam GI & Abdominal Exam: Soft, Normal Bowel Sounds. absent: Tenderness - Extremities Exam Extremities Exam: Full ROM. absent: Pedal Edema, Tenderness - Neurological Exam Neurological Exam: Alert, Awake, Oriented x3 - Psychiatric Exam Psychiatric exam: Normal Affect, Normal Mood - Skin Skin Exam: Dry, Intact, Warm Assessment and Plan - Assessment and Plan (Free Text) Assessment: Pt is a 48yo female with a PMH of GERD and uterine fibroids who presents to the ED complaining of nausea and non bloody/ non bilious vomiting since this morning. Pt states she ate some [place] food and she thinks it made her sick. Pt was found to have a Hgb of 6.1, likely from her uterine fibroids. Plan: Symptomatic Hypochromic Microcytic Anemia - FOBT POSITIVE - history of uterine fibroids - type and screen, transfused 1 unit 09/07/18, transfuse 2 units 09/08/18 - Hgb 9.4, after being transfused 3 units - peripheral smear shows hypochromic microcytic anemia - iron studies: iron <10, TIBC 440, unable to calculate %sat, Transferrin 339 - electrophoresis follow up - EGD performed today - CTAP: uterine fibroids, no acute intra abdominal process - GI consulted Intractable Nausea and Vomiting - Likely Viral Gastroenteritis, history of GERD - Protonix - GI consulted Pt seen, examined, assessment and plan discussed with Dr Lai Braswell PGY1 <Jason Hoyt - Last Filed: 09/10/18 17:35> Objective - Vital Signs/Intake and Output Vital Signs (last 24 hours): Temp Pulse Resp BP Pulse Ox 98.6 F 81 20 148/78 95 09/10/18 12:00 09/10/18 12:00 09/10/18 12:00 09/10/18 12:00 09/09/18 17:30 Intake and Output: 09/10/18 09/10/18 06:59 18:59 Intake Total 1680 Balance 1680 - Labs Labs: 09/10/18 07:00 09/10/18 07:00 PT 13.5 SECONDS (9.4-12.5) H 09/09/18 11:20 INR 1.19 09/09/18 11:20 Attending/Attestation - Attestation I have personally seen and examined this patient.: Yes I have fully participated in the care of the patient.: Yes I have reviewed all pertinent clinical information, including history, physical exam and plan: Yes Notes (Text): 09/10/18 17:33 Attending note; Patient seen and examined with resident. Patient is complaining of epigastric discomfort. Denies any nausea, vomiting. Case discussed with GI fellow in detail. Plan for EGD today. Currently nothing by mouth. Patient is a 48-year-old female past medical history significant for acid reflux, urine fibroids, and iron deficient anemia that presented to the emergency room with nausea, vomiting, and abdominal pain. 1. Epigastric pain; nausea and vomiting resolved. Likely secondary to viral gastroenteritis. Continue IV fluids. Tolerating liquid diet Zofran as needed. Abdominal x-ray showed no evidence of acute mechanical bowel obstruction, no gross free intraperitoneal air. Nothing by mouth for EGD today. 2. Severe anemia. Stool for occult blood positive. Patient had 3 units of PRBC transfusion. CT abd/pelvis shows large uterine fibroid. Patient also with history of heavy menses and uterine fibroids. Patient advised that she will need follow-up with her warp hanger as an outpatient. 3. Obesity. Diet and exercise discussed with patient. 4. GI/DVT prophylaxis. Protonix/scds Monitor closely. Upon discharge the patient will follow up with [facility] clinic. \
[2018-09-10 07:35] LABS: BASO # 0.01 K/mm3 (0.0-2.0); BASO % 0.1 % (0.0-3.0); EOS # 0.1 (0.0-0.7); EOS % 1.5 % (1.5-5.0); HEMOGLOBIN 9.8 g/dL (12.0-16.0); LYMPH # 1.5 (1.2-3.4); LYMPH % 17.6 % (22.0-35.0); MEAN CELL VOLUME 63.3 fl (80.0-105.0); MEAN CORPUSCULAR HEMOGLOBIN 18.5 pg (25.0-35.0); MEAN CORPUSCULAR HGB CONC 29.3 g/dl (31.0-37.0); MONO # 0.7 (0.1-0.6); MONO % 8.7 % (1.0-6.0); PLATELET COUNT 447 10^3/uL (120.0-450.0); RBC 5.29 10^6/uL (3.5-6.1); RED CELL DISTRIBUTION WIDTH 29.3 % (11.5-14.5); WHITE BLOOD COUNT 8.5 10^3/uL (4.5-11.0)
[2018-09-10 08:03] LABS: ALB/GLOB RATIO 1.3 (1.1-1.8); ALBUMIN 4.3 g/dL (3.0-4.8); ALT/SGPT 19 U/L (7-56); AST/SGOT 46 U/L (14-36); BLOOD UREA NITROGEN 7 mg/dL (7-21); CALCIUM 9.1 mg/dL (8.4-10.5); GFR NON-AFRICAN AMERICAN > 60
[2018-09-10] MEDS ORDERED: Potassium Chloride 40 mEq/30 ml LIQ UD PO ONE (10:31)
[2018-09-10 13:05] VITALS: BP 148/78; PULSE 81; TEMP 98.6
--- NOTE | 2018-09-10 13:32 | CP.PCM.DIS ---
<Tyler Braswell - Last Filed: 09/10/18 13:23> Provider - Provider Date of Admission: 09/08/18 13:42 Attending physician: Jason oHyt MD Primary care physician: JOANNE FAMILY PROVIDER Consults: 09/07/18 17:12 Gastroenterology Consult Routine Comment: Consulting Provider: Robyn Olson V Consulting Physician: Robyn Olson V Reason for Consult: Occult blood positive Time Spent in preparation of Discharge (in minutes): 40 Diagnosis - Discharge Diagnosis (1) Anemia Status: Acute Priority: High (2) Intractable nausea and vomiting Status: Acute Priority: High Hospital Course - Lab Results Lab Results: Micro Results 09/07/18 Unknown Urine,Clean Catch Urine Culture - Final No Growth (<1,000 CFU/ML) Most Recent Lab Values WBC 8.5 10^3/uL (4.5-11.0) 09/10/18 07:00 RBC 5.29 10^6/uL (3.5-6.1) 09/10/18 07:00 Hgb 9.8 g/dL (12.0-16.0) L 09/10/18 07:00 Hct 33.5 % (36.0-48.0) L 09/10/18 07:00 MCV 63.3 fl (80.0-105.0) L 09/10/18 07:00 MCH 18.5 pg (25.0-35.0) L 09/10/18 07:00 MCHC 29.3 g/dl (31.0-37.0) L 09/10/18 07:00 RDW 29.3 % (11.5-14.5) H 09/10/18 07:00 Plt Count 447 10^3/uL (120.0-450.0) 09/10/18 07:00 MPV 9.0 fl (7.0-11.0) 09/09/18 07:10 Neut % (Auto) 72.1 % (50.0-68.0) H 09/10/18 07:00 Lymph % (Auto) 17.6 % (22.0-35.0) L 09/10/18 07:00 [place] % (Auto) 8.7 % (1.0-6.0) H 09/10/18 07:00 Eos % (Auto) 1.5 % (1.5-5.0) 09/10/18 07:00 Baso % (Auto) 0.1 % (0.0-3.0) 09/10/18 07:00 Lymph # (Auto) 1.5 (1.2-3.4) 09/10/18 07:00 [place] # (Auto) 0.7 (0.1-0.6) H 09/10/18 07:00 Eos # (Auto) 0.1 (0.0-0.7) 09/10/18 07:00 Baso # (Auto) 0.01 K/mm3 (0.0-2.0) 09/10/18 07:00 Absolute Neuts (auto) 6.11 (1.4-6.5) 09/10/18 07:00 Hemoglobinopathy Red Blood Count 3.96 Mill/mcL (3.80-5.10) 09/07/18 11:05 Hemoglobinopathy Hct 20.9 % (35.0-45.0) L 09/07/18 11:05 Hemoglobinopathy Hgb 6.1 g/dL (11.7-15.5) L 09/07/18 11:05 Hemoglobinopathy MCV 52.8 fL (80.0-100.0) L 09/07/18 11:05 Hemoglobinopathy MCH 15.5 pg (27.0-33.0) L 09/07/18 11:05 Hemoglobinopathy RDW 20.9 % (11.0-15.0) H 09/07/18 11:05 PT 13.5 SECONDS (9.4-12.5) H 09/09/18 11:20 INR 1.19 09/09/18 11:20 Sodium 140 mmol/L (132-148) 09/10/18 07:00 Potassium 3.5 mmol/L (3.6-5.0) L 09/10/18 07:00 Chloride 107 mmol/L (98-107) 09/10/18 07:00 Carbon Dioxide 25 mmol/L (21-33) 09/10/18 07:00 Anion Gap 12 (10-20) 09/10/18 07:00 BUN 7 mg/dL (7-21) 09/10/18 07:00 Creatinine 0.6 mg/dl (0.7-1.2) L 09/10/18 07:00 Est GFR ( Amer) > 60 09/10/18 07:00 Est GFR (Non-Af Amer) > 60 09/10/18 07:00 Random Glucose 93 mg/dL (70-110) 09/10/18 07:00 Calcium 9.1 mg/dL (8.4-10.5) 09/10/18 07:00 Magnesium 2.2 mg/dL (1.7-2.2) 09/07/18 11:05 Iron < 10 ug/dL (45-180) L 09/07/18 11:30 TIBC 440 ug/dL (265-497) 09/07/18 11:30 % Saturation % (20-55) 09/07/18 11:30 Transferrin 339.29 mg/dL (206-381) 09/07/18 14:30 Total Bilirubin 0.7 mg/dL (0.2-1.3) 09/10/18 07:00 AST 46 U/L (14-36) H D 09/10/18 07:00 ALT 19 U/L (7-56) 09/10/18 07:00 Alkaline Phosphatase 113 U/L (38-126) 09/10/18 07:00 Troponin I < 0.01 ng/mL 09/07/18 11:05 Total Protein 7.7 g/dL (5.8-8.3) 09/10/18 07:00 Albumin 4.3 g/dL (3.0-4.8) 09/10/18 07:00 Globulin 3.3 gm/dL 09/10/18 07:00 Albumin/Globulin Ratio 1.3 (1.1-1.8) 09/10/18 07:00 Lipase 98 U/L (23-300) 09/07/18 11:05 Urine Color Yellow (YELLOW) 09/07/18 10:45 Urine Appearance Slight-cloudy (CLEAR) 09/07/18 10:45 Urine pH 6.0 (4.7-8.0) 09/07/18 10:45 Ur Specific [place] 1.025 (1.005-1.035) 09/07/18 10:45 Urine Protein Trace mg/dL (<30 mg/dL) H 09/07/18 10:45 Urine Glucose (UA) Negative mg/dL (NEGATIVE) 09/07/18 10:45 Urine Ketones Negative mg/dL (NEGATIVE) 09/07/18 10:45 Urine Blood Large (NEGATIVE) H 09/07/18 10:45 Urine Nitrate Negative (NEGATIVE) 09/07/18 10:45 Urine Bilirubin Negative (NEGATIVE) 09/07/18 10:45 Urine Urobilinogen 0.2 E.U./dL (<1 E.U./dL) 09/07/18 10:45 Ur Leukocyte Esterase Trace Tory/uL (NEGATIVE) H 09/07/18 10:45 Urine RBC Tntc /hpf (0-2) H 09/07/18 10:45 Urine WBC 5 - 10 /hpf (0-6) H 09/07/18 10:45 Ur Epithelial Cells 4 - 5 /hpf (0-5) 09/07/18 10:45 Urine Bacteria Many /hpf (NONE) 09/07/18 10:45 Urine Other Fiber /hpf 09/07/18 10:45 Urine HCG, Qual Negative (NEGATIVE) 09/08/18 17:23 Blood Type B POSITIVE 09/07/18 13:17 Blood Type Confirm B POSITIVE 09/07/18 14:08 Antibody Screen Negative 09/07/18 13:17 Crossmatch See Detail 09/07/18 13:17 BBK History Checked No verified bt 09/07/18 13:17 - Hospital Course Hospital Course: Hospitalization Pt is a 48 yo female with a PMH of GERD and uterine fibroids who presents to the ED complaining of nausea and non bloody/ non bilious vomiting since this morning. Pt states she ate some [place] food yesterday and she feels it made her sick. Pt denies diarrhea, or seeing blood in the stool. She states she has vomited over 10 times. She denies any sick contacts. Pt has not been able to eat anything today because of her nausea and vomiting. Pt states she has very painful, cycles and she bleeds excessively for 5 days. She sometimes has to use 10 pad/tampons per day. Pt denies fever. Pt states she is currently on her menstrual cycle. Pt states she has been feeling fatigue. Discharge Please follow up at the [facility], you have an appointment made for: 09/16/18 1:30PM. Pt given Dr. Olson, staff development manager (stomach doctor), information as a referral. Establish care with a Department Store Salesperson at [facility]. Prescription for Iron - please take this daily, as your iron counts are low here. Please take your stomach medicine, Protonix, as prescribed. - Date & Time of H&P Date of H&P: 09/10/18 Time of H&P: 07:00 Discharge Exam - Head Exam Head Exam: ATRAUMATIC, NORMOCEPHALIC - Eye Exam Eye Exam: EOMI - ENT Exam ENT Exam: Mucous Membranes Moist - Neck Exam Neck exam: Full Rom - Respiratory Exam Respiratory Exam: Clear to PA & Lateral, NORMAL BREATHING PATTERN, UNREMARKABLE. absent: Accessory Muscle Use, Respiratory Distress - Cardiovascular Exam Cardiovascular Exam: RRR, +S1, +S2. absent: Diastolic murmur, Systolic Murmur - GI/Abdominal Exam GI & Abdominal Exam: Soft. absent: Tenderness - Extremities Exam Extremities exam: full ROM, pedal pulses present - Neurological Exam Neurological exam: Oriented x3 - Psychiatric Exam Psychiatric exam: Normal Affect, Normal Mood - Skin Skin Exam: Dry, Normal Color, Warm Discharge Plan - Discharge Medications Prescriptions: Docusate Sodium [Colace] 100 mg PO DAILY #10 capsule Ferrous Sulfate [Feosol] 325 mg PO TID #30 tab Pantoprazole [Protonix] 40 mg PO DAILY #30 ect - Follow Up Plan Condition: GUARDED Disposition: HOME/ ROUTINE Instructions: Gastrointestinal Bleeding (DC), Acid Reflux (GERD), Adolescent (DC), Anemia of Chronic Disease (DC) Additional Instructions: Please follow up at the [facility], you have an appointment made for: 09/16/18 1:30PM. Please establish care with Dr. Olson, staff development manager (stomach doctor), in his clinic. His information has been provided as a referral. Please establish care with a Department Store Salesperson. Please go to [facility] You are being given a prescription for Iron - please take this daily, as your iron counts are low here. Please take your stomach medicine, Protonix, as prescribed. If your symptoms return or worsen, go to the nearest emergency department Referrals: FAMILY PROVIDER,NO [Primary Care Provider] - <Jason Hoyt - Last Filed: 09/10/18 17:37> Provider - Provider Date of Admission: 09/08/18 13:42 Attending physician: Jason Hoyt MD Primary care physician: JOANNE FAMILY PROVIDER Consults: 09/07/18 17:12 Gastroenterology Consult Routine Comment: Consulting Provider: Robyn Olson V Consulting Physician: Robyn Olson V Reason for Consult: Occult blood positive Hospital Course - Lab Results Lab Results: Micro Results 09/07/18 Unknown Urine,Clean Catch Urine Culture - Final No Growth (<1,000 CFU/ML) Most Recent Lab Values WBC 8.5 10^3/uL (4.5-11.0) 09/10/18 07:00 RBC 5.29 10^6/uL (3.5-6.1) 09/10/18 07:00 Hgb 9.8 g/dL (12.0-16.0) L 09/10/18 07:00 Hct 33.5 % (36.0-48.0) L 09/10/18 07:00 MCV 63.3 fl (80.0-105.0) L 09/10/18 07:00 MCH 18.5 pg (25.0-35.0) L 09/10/18 07:00 MCHC 29.3 g/dl (31.0-37.0) L 09/10/18 07:00 RDW 29.3 % (11.5-14.5) H 09/10/18 07:00 Plt Count 447 10^3/uL (120.0-450.0) 09/10/18 07:00 MPV 9.0 fl (7.0-11.0) 09/09/18 07:10 Neut % (Auto) 72.1 % (50.0-68.0) H 09/10/18 07:00 Lymph % (Auto) 17.6 % (22.0-35.0) L 09/10/18 07:00 [place] % (Auto) 8.7 % (1.0-6.0) H 09/10/18 07:00 Eos % (Auto) 1.5 % (1.5-5.0) 09/10/18 07:00 Baso % (Auto) 0.1 % (0.0-3.0) 09/10/18 07:00 Lymph # (Auto) 1.5 (1.2-3.4) 09/10/18 07:00 [place] # (Auto) 0.7 (0.1-0.6) H 09/10/18 07:00 Eos # (Auto) 0.1 (0.0-0.7) 09/10/18 07:00 Baso # (Auto) 0.01 K/mm3 (0.0-2.0) 09/10/18 07:00 Absolute Neuts (auto) 6.11 (1.4-6.5) 09/10/18 07:00 Hemoglobinopathy Red Blood Count 3.96 Mill/mcL (3.80-5.10) 09/07/18 11:05 Hemoglobinopathy Hct 20.9 % (35.0-45.0) L 09/07/18 11:05 Hemoglobinopathy Hgb 6.1 g/dL (11.7-15.5) L 09/07/18 11:05 Hemoglobinopathy MCV 52.8 fL (80.0-100.0) L 09/07/18 11:05 Hemoglobinopathy MCH 15.5 pg (27.0-33.0) L 09/07/18 11:05 Hemoglobinopathy RDW 20.9 % (11.0-15.0) H 09/07/18 11:05 PT 13.5 SECONDS (9.4-12.5) H 09/09/18 11:20 INR 1.19 09/09/18 11:20 Sodium 140 mmol/L (132-148) 09/10/18 07:00 Potassium 3.5 mmol/L (3.6-5.0) L 09/10/18 07:00 Chloride 107 mmol/L (98-107) 09/10/18 07:00 Carbon Dioxide 25 mmol/L (21-33) 09/10/18 07:00 Anion Gap 12 (10-20) 09/10/18 07:00 BUN 7 mg/dL (7-21) 09/10/18 07:00 Creatinine 0.6 mg/dl (0.7-1.2) L 09/10/18 07:00 Est GFR ( Amer) > 60 09/10/18 07:00 Est GFR (Non-Af Amer) > 60 09/10/18 07:00 Random Glucose 93 mg/dL (70-110) 09/10/18 07:00 Calcium 9.1 mg/dL (8.4-10.5) 09/10/18 07:00 Magnesium 2.2 mg/dL (1.7-2.2) 09/07/18 11:05 Iron < 10 ug/dL (45-180) L 09/07/18 11:30 TIBC 440 ug/dL (265-497) 09/07/18 11:30 % Saturation % (20-55) 09/07/18 11:30 Transferrin 339.29 mg/dL (206-381) 09/07/18 14:30 Total Bilirubin 0.7 mg/dL (0.2-1.3) 09/10/18 07:00 AST 46 U/L (14-36) H D 09/10/18 07:00 ALT 19 U/L (7-56) 09/10/18 07:00 Alkaline Phosphatase 113 U/L (38-126) 09/10/18 07:00 Troponin I < 0.01 ng/mL 09/07/18 11:05 Total Protein 7.7 g/dL (5.8-8.3) 09/10/18 07:00 Albumin 4.3 g/dL (3.0-4.8) 09/10/18 07:00 Globulin 3.3 gm/dL 09/10/18 07:00 Albumin/Globulin Ratio 1.3 (1.1-1.8) 09/10/18 07:00 Lipase 98 U/L (23-300) 09/07/18 11:05 Urine Color Yellow (YELLOW) 09/07/18 10:45 Urine Appearance Slight-cloudy (CLEAR) 09/07/18 10:45 Urine pH 6.0 (4.7-8.0) 09/07/18 10:45 Ur Specific [place] 1.025 (1.005-1.035) 09/07/18 10:45 Urine Protein Trace mg/dL (<30 mg/dL) H 09/07/18 10:45 Urine Glucose (UA) Negative mg/dL (NEGATIVE) 09/07/18 10:45 Urine Ketones Negative mg/dL (NEGATIVE) 09/07/18 10:45 Urine Blood Large (NEGATIVE) H 09/07/18 10:45 Urine Nitrate Negative (NEGATIVE) 09/07/18 10:45 Urine Bilirubin Negative (NEGATIVE) 09/07/18 10:45 Urine Urobilinogen 0.2 E.U./dL (<1 E.U./dL) 09/07/18 10:45 Ur Leukocyte Esterase Trace Tory/uL (NEGATIVE) H 09/07/18 10:45 Urine RBC Tntc /hpf (0-2) H 09/07/18 10:45 Urine WBC 5 - 10 /hpf (0-6) H 09/07/18 10:45 Ur Epithelial Cells 4 - 5 /hpf (0-5) 09/07/18 10:45 Urine Bacteria Many /hpf (NONE) 09/07/18 10:45 Urine Other Fiber /hpf 09/07/18 10:45 Urine HCG, Qual Negative (NEGATIVE) 09/08/18 17:23 Blood Type B POSITIVE 09/07/18 13:17 Blood Type Confirm B POSITIVE 09/07/18 14:08 Antibody Screen Negative 09/07/18 13:17 Crossmatch See Detail 09/07/18 13:17 BBK History Checked No verified bt 09/07/18 13:17 Attending/Attestation - Attestation I have personally seen and examined this patient.: Yes I have fully participated in the care of the patient.: Yes I have reviewed all pertinent clinical information, including history, physical exam and plan: Yes Notes (Text): 09/10/18 17:35 Attending note; Patient seen and examined with resident. Tolerating diet well. Denies any nausea, vomiting. Status post EGD yesterday. Patient is a 48-year-old female past medical history significant for acid reflux, urine fibroids, and iron deficient anemia that presented to the emergency room with nausea, vomiting, and abdominal pain. 1. Epigastric pain; nausea and vomiting resolved. Tolerating diet. s/p EGD yesterday. EGD showed chronic gastritis and polyp which was resected. Biopsy pending. 2. Severe anemia. Stool for occult blood positive. Patient had 3 units of PRBC transfusion. Hemoglobin is stable at 9.8. Continue by mouth iron. CT abd/pelvis shows large uterine fibroid. Patient also with history of heavy menses and uterine fibroids. Patient advised that she will need follow-up with her reconsignment clerk as an outpatient. 3. Obesity. Diet and exercise discussed with patient. Patient will be referred to [facility] AGRONOMY SUPERVISOR clinic. Monitor closely. Upon discharge the patient will follow up with [facility] clinic.
[2018-09-11 17:38] LABS: HEMOGLOBIN A 97.6 Percent (>96.0); HEMOGLOBIN A2 1.4 Percent (1.8-3.5)
== END 2018-09-10 15:12 | disposition home or self-care (01) | DRG 663 ==
LOC: ED 10:04 → ERH 13:05 → 2RSO 23:00 → OBSVTOIN 09-08 13:42
PROVIDERS: ADMIT Hospitalist; ATTEND Internal Medicine
PROC: 30233N1 Transfusion of Nonautologous Red Blood Cells into Peripheral Vein, Percutaneous Approach (ICD-10-PCS; 2018-09-07)
PROC: 0DB98ZX Excision of Duodenum, Via Natural or Artificial Opening Endoscopic, Diagnostic (ICD-10-PCS; 2018-09-09)
PROC: 0DB68ZX Excision of Stomach, Via Natural or Artificial Opening Endoscopic, Diagnostic (ICD-10-PCS; principal; 2018-09-09 15:15)
DX: D50.9 Iron deficiency anemia, unspecified (principal); N39.0 Urinary tract infection, site not specified; A08.4 Viral intestinal infection, unspecified; D25.9 Leiomyoma of uterus, unspecified; K21.9 Gastro-esophageal reflux disease without esophagitis; E66.9 Obesity, unspecified; K29.50 Unspecified chronic gastritis without bleeding; N92.0 Excessive and frequent menstruation with regular cycle; K31.7 Polyp of stomach and duodenum; Z87.440 Personal history of urinary (tract) infections; Z87.891 Personal history of nicotine dependence; Z90.49 Acquired absence of other specified parts of digestive tract; Z68.39 Body mass index [BMI] 39.0-39.9, adult